=== PATIENT | female | born 1985 | race American Indian/Alaskan Native ===

== ENCOUNTER 2018-08-23 23:50 | Emergency (ER) | payer OTHER ==
[~2018-08-23] VITALS: Ht 160 cm; Wt 46.3 kg
[2018-08-24 00:50] LABS: PLATELET COUNT 326 K/uL (152-353)
[2018-08-24 01:03] LABS: POTASSIUM 4.2 mmol/L (3.6-5.2)
[2018-08-24 03:55] VITALS: BP 101/70; TEMP 98
== END 2018-08-24 03:58 | disposition home or self-care (01) ==
LOC: ED 23:50
PROVIDERS: Emergency Medicine
DX: R10.31 Right lower quadrant pain (principal); D72.828 Other elevated white blood cell count
CPT/HCPCS: 36415; 80053; 81000; 81025; 82150; 83690; 85027; 96374; 99284; J1885; Q9963

== ENCOUNTER 2018-09-26 09:41 | Outpatient (CLI) | payer OTHER | END 2018-09-26 23:01 | disposition home or self-care (01) | LOC: RESP 09:41 | DX: R07.89 Other chest pain (principal); R06.02 Shortness of breath; R00.2 Palpitations; R55 Syncope and collapse | CPT/HCPCS: 93225 ==

== ENCOUNTER 2018-09-26 13:56 | Emergency (ER) | payer OTHER ==
[~2018-09-26] VITALS: Ht 160 cm; Wt 48.5 kg
[2018-09-26 14:38] LABS: PLATELET COUNT 420 K/uL (152-353)
[2018-09-26 14:50] LABS: POTASSIUM 4.1 mmol/L (3.6-5.2); SODIUM 138 mmol/L (136-145)
[2018-09-26 17:00] VITALS: BP 104/72; TEMP 98.2
== END 2018-09-26 17:00 | disposition home or self-care (01) ==
LOC: ED 13:56
PROVIDERS: Family Medicine
DX: R07.89 Other chest pain (principal); F41.8 Other specified anxiety disorders
CPT/HCPCS: 36415; 80053; 81000; 82550; 84484; 85027; 93005; 99284

== ENCOUNTER 2018-09-27 12:19 | Outpatient (CLI) | payer OTHER | END 2018-09-27 23:45 | disposition home or self-care (01) | LOC: RESP 12:19 | DX: R07.89 Other chest pain (principal); R06.02 Shortness of breath; R00.2 Palpitations; R55 Syncope and collapse | CPT/HCPCS: 93306 ==

== ENCOUNTER 2019-01-25 23:52 | Emergency (ER) | payer OTHER ==
[~2019-01-25] VITALS: Ht 160 cm; Wt 52.2 kg
[2019-01-26 02:00] VITALS: BP 124/18; TEMP 97
== END 2019-01-26 02:00 | disposition home or self-care (01) ==
LOC: ED 23:52
DX: N39.0 Urinary tract infection, site not specified (principal); Z20.2 Contact with and (suspected) exposure to infections with a predominantly sexual mode of transmission
CPT/HCPCS: 81000; 81025; 87086; 87088; 87210; 87490; 96372; 99284; J0696

== ENCOUNTER 2019-01-26 10:44 | Emergency (ER) | payer OTHER ==
[~2019-01-26] VITALS: Ht 160 cm; Wt 52.2 kg
[2019-01-26 10:59] VITALS: TEMP 98.2
[2019-01-26 11:55] VITALS: BP 112/66
== END 2019-01-26 11:55 | disposition home or self-care (01) ==
LOC: ED 10:44
DX: N39.0 Urinary tract infection, site not specified (principal); M54.9 Dorsalgia, unspecified
CPT/HCPCS: 96372; 99283; J1885